=== PATIENT | male | born 1960 | race Asian ===

== ENCOUNTER → 2017-07-24 | Outpatient (CLI) | payer OTHER | END | disposition home or self-care (01) | LOC: RADPV 09:10 | PROVIDERS: ATTEND Internal Medicine | DX: J98.4 Other disorders of lung (principal); I70.0 Atherosclerosis of aorta | CPT/HCPCS: 71046 ==

== ENCOUNTER → 2019-01-11 | Outpatient (CLI) | payer OTHER | END | disposition home or self-care (01) | LOC: LABPV 10:42 | PROVIDERS: ATTEND Internal Medicine | DX: J98.4 Other disorders of lung (principal); I70.0 Atherosclerosis of aorta; M47.814 Spondylosis without myelopathy or radiculopathy, thoracic region ==